=== PATIENT | male | born 1970 | race Caucasian/White ===

== ENCOUNTER → 2017-02-24 | Outpatient (CLI) | payer OTHER ==
--- NOTE | 2017-02-24 09:47 | MR ---
EXAMINATION TYPE: MR shoulder LT wo con DATE OF EXAM: 02/24/2017 7:53 AM COMPARISON: NONE HISTORY: lt shoulder pain disorder rotator cuff lt TECHNIQUE: Multiplanar multispin echo imaging of the right shoulder was performed. FINDINGS: Rotator cuff : Full thickness tear involving the supraspinatus tendon just proximal to the critical z one with fluid filled gap of 1.5 cm. There is evidence of retraction. No evidence for muscular atroph y. There is superimposed chronic tendinopathy. Fluid is seen within the subacromial subdeltoid bursa. Remaining constituents of the rotator cuff are intact. Musculature: There is no muscular tear, contusion, or atrophy. Acromioclavicular joint : There are mild to moderate degenerative changes of the acromioclavicular chloe int. Small subacromial spur resulting in impingement. Osseous structures : There are no fractures or regions of abnormal bone marrow signal intensity. Long biceps tendon : The biceps tendon is normally situated within the bicipital groove. No complete or partial biceps tendon tear is present. Glenohumeral Joint fluid : Small joint effusion noted. Cartilage and Bone : No focal hyaline cartilage defects are noted. No Hill-Sachs, reverse Hill-Sachs, or bony Bankart lesions are seen. Labrum : Diminutive anterior superior glenoid labrum may reflect tear. OTHER FINDINGS : none IMPRESSION: 1. Full-thickness retracted tear supraspinatus tendon as discussed. 2. I cannot exclude the anterior superior glenoid labral tear.
== END | disposition home or self-care (01) ==
LOC: RADMRIMAIN 07:13
PROVIDERS: ATTEND Family Medicine
DX: M75.122 Complete rotator cuff tear or rupture of left shoulder, not specified as traumatic (principal); M67.912 Unspecified disorder of synovium and tendon, left shoulder

== ENCOUNTER 2017-03-24 10:23 | Day surgery (SDC) | payer OTHER ==
[2017-03-22 10:27] VITALS: BMI 35.4
[~2017-03-24 10:23] MED LIST: ACETAMINOPHEN TAB 500 MG TAB PO ONE; DEXAMETHASONE SOD PHOSPHATE 10 MG/ML 1 ML VIAL IV ONE; HYDROmorphone 0.5 MG/0.5 ML SYRINGE IVP PRN; LACTATED RINGERS 1,000 ML IV SCH; MELOXICAM 7.5 MG TAB PO ONE; MIDAZOLAM 2 MG/2 ML VIAL IV PRN; ONDANSETRON 4 MG/2 ML VIAL IVP ONE; Pre Op ABX Message 1 EACH MISC MISCELLANE ONE
[2017-03-24] MEDS ORDERED: LIDOCAINE 1% 20 ML VIAL (10MG/ML) FOR IV START INTRADERMA ONE (11:18)
[2017-03-24] MEDS ORDERED: SCOPOLAMINE 1.5MG/72HR PATCH TRANSDERM ONE (11:40)
[2017-03-24] MEDS ORDERED: SUCCINYLCHOLINE CHLORIDE 100 MG/5 ML SYR IV ONE (12:27)
[2017-03-24] MEDS ORDERED: GLYCOPYRROLATE 0.2 MG/ML 2 ML VIAL ONE (12:27)
[2017-03-24] MEDS ORDERED: PROPOFOL 10 MG/ML 20 ML VIAL IV ONE (12:27)
[2017-03-24] MEDS ORDERED: ROCURONIUM BROMIDE 10 MG/ML 10 ML VIAL IV ONE (12:27)
[2017-03-24] MEDS ORDERED: LIDOCAINE 2%-EPI 1:100,000 20 ML VIAL ONE (12:27)
[2017-03-24] MEDS ORDERED: NEOSTIGMINE 1 MG/ML 10 ML VIAL ONE (12:27)
[2017-03-24] MEDS ORDERED: PHENYLEPHRINE-0.9% NACL SYG 1 MG/10 ML SYRINGE ONE (12:27)
[2017-03-24] MEDS ORDERED: LIDOCAINE 1% INJ 10MG/ML (20 ML MDV) ONE (12:27)
[2017-03-24] MEDS ORDERED: ROPIVACAINE 5 MG/ML 30 ML VIAL ONE (12:27)
[2017-03-24] MEDS ORDERED: MIDAZOLAM 2 MG/2 ML VIAL ONE (12:27)
[2017-03-24] MEDS ORDERED: SODIUM CHLORIDE 0.9% 50 ML with ceFAZolin 1,000 MG IV ONE ×2 (12:49)
[2017-03-24] MEDS ORDERED: LACTATED RINGERS 1,000 ML IV ONE (14:12)
[2017-03-24 15:09] VITALS: TEMP 97
[2017-03-24 16:24] VITALS: RESP 16
[2017-03-24 16:51] VITALS: BP 137/86; PULSE 86
--- NOTE | 2017-03-26 17:09 | P.ONQ ---
Anesthesiology Proc Note - PNB - Peripheral Nerve Block Performed Interscalene Single Time Out Performed: Yes Procedure Start Time: 12:11 Procedure Stop Time: 12:16 Indication: Acute Post-Operative Pain, Requested by physician Sedation Type: Sedate with meaningful contact maintained Preparation: Sterile Prep Position: Supine Needle Size: 50mm (2") Needle Gauge: 21 Technique: Ultrasound Injectate: 2.0% Lidocaine (see comment for volume) (ropi .5% 20cc plus lido 2percent with epi-14 mL) Blood Aspirated: No Pain Paresthesia on Injection Noted: No Resistance on Injection: Normal Events: Uneventful and Well Tolerated
--- NOTE | 2017-04-24 10:17 | P.OP ---
Date of Procedure: 03/24/17 Procedure(s) Performed: left shoulder arthroscopy RCR, SAD, PDCE, SLTD, LHB debridement (Mini open?) carline ebl 25 anchors--self drilling swivelocks from [employer] PREOPERATIVE DIAGNOSES: 1. Left shoulder rotator cuff tear. 2. Chronic impingement syndrome. 3. Acromioclavicular osteoarthritis. 4. Superior labral degenerative tear. POSTOPERATIVE DIAGNOSES: 1. Left shoulder rotator cuff tear (supraspinatus, [] cm). 2. Chronic impingement syndrome. 3. Acromioclavicular osteoarthritis. 4. Labral degenerative tear. 5. Severe biceps tendon degeneration 6. Moderate adhesions glenohumeral joint and subacromial space PROCEDURES PERFORMED: 1. Left shoulder arthroscopy with rotator cuff repair 2. Arthroscopic partial distal clavicle excision 3. Arthroscopic lysis of adhesions with subacromial bursectomy 4. Arthroscopic debridement superior labral tear and biceps tenotomy 5. Arthroscopic subacromial decompression ANESTHESIA: General. ESTIMATED BLOOD LOSS: Less than 25 mL TOURNIQUET: None CLINICAL ASST: Hazel Harris (assistance with: Positioning, retraction, camera operation, repair, closure, dressing) COMPLICATIONS: None. DISPOSITION: To postanesthesia care unit INDICATIONS: Damion is a 46 year old male with a history of rotator cuff difficulties. He has difficulties with overhead activities as well as significant pain at night consistent with a rotator cuff tear and he also has symptoms referrable to his biceps tendon.. MRI was suspicious for a tear, and the patient wishes to have it repaired. I have examined the patient in the office and proposed rotator cuff repair via an arthroscopic or mini-open approach, as well as other procedures to optimize the shoulder and outcome, such as decompression of spurs and debridement of loose or degenerated tissue. I have explained the risks of this surgery as being inclusive of, but not limited to: bleeding, infection, scarring, discomfort, blood vessel and/or nerve damage, need for further surgery, stiffness, persistence or worsening of problems, , and other risks. The consent form has been completed and signed. PROCEDURE: Appropriate consent was obtained from the patient. The patient was taken to the operating room and placed in the supine position. General anesthesia was initiated and after confirmation of adequate anesthesia, the patients right shoulder was examined. Initial range of motion showed flexion to 170 abduction to 170, external rotation to 70 and internal rotation to 70. The shoulder was stable. Next, the patient was rotated into the lateral decubitus position and stabilized to the table with a lockwood bag and padded straps. Care was taken to make sure that all pressure points were adequately padded. Bear-hugger was used along with bilateral leg sequential compression devices. Prepping and draping was completed in the usual aseptic fashion using ChloraPrep. The patient received intravenous antibiotics prior to incision. The shoulder was suspended from traction with 15 lbs. of weight in a position of 45 degrees abduction. Landmarks were outlined with a skin marking pen. A spinal needle was inserted into the glenohumeral joint and fluid was administered to distend the joint. Some pressure was noted after 100 mL was administered. A posterior portal was created using an 11 blade and the arthroscopic canula, over a dull trocar, was carefully inserted into the joint. Arthroscopy then commenced. An anterior portal was inserted in the rotator interval area using inside-out technique. Biceps tendon showed severe deterioration. Biceps tenotomy was performed using a shaver. The tendon stump was then allowed to retract into the bicipital groove. Infraspinatus and teres minor attachments were normal. Subscapularis tendon showed a partial tear along the superior rolled border which was addressed with debridement. Hyaline cartilage of the glenoid and humeral head showed mild degenerative changes typical for age. Supraspinatus attachment after superficial debridement showed a 1.3 cm tear which was full thickness. No loose bodies were noted in the joint. Superior labrum showed moderate degenerative tearing but was well-attached. Negative peel back sign. There was also evidence of minor degenerative labral tearing in the inferior area. Loose fibers of labrum in this area were debrided away back to stable labrum. Synovitis with adhesions was noted superior to the superior labrum and within the rotator interval. This was debrided and removed where the capsule appeared inflamed, using an arthroscopic shaver. Attention was then directed to the subacromial space. The camera and instruments were redirected into the subacromial space and bursoscopy was performed. The patients bursa was inflamed and thickened, indicating chronic bursitis. A lateral portal was created using outside-in technique. The supraspinatus tendon was examined particularly closely. There was an approximately 1.3 cm full thickness crescent-shaped tear. The loose fibers of the tear were debrided back to stable tissue and the defect in the tendon was repaired arthroscopically after careful preparation of the supraspinatus footprint with germaine and rasp to create a good bleeding surface of bone, see below. The subacromial bursa contained moderate degenerative appearing adhesions within the superior space, but also the lateral anterior and posterior spaces as well. This degenerative material which consisted of thickened bursal material, was resected using a shaver. Meticulous hemostasis was maintained using the ArthroCare device. The undersurface of the acromion had frictional changes consistent with impingement syndrome. The underside of the acromion anteriorly was cleared of soft tissue using an arthroscopic radiofrequency ablator. The frictional changes of the rotator cuff matched exactly the location of the rotator cuff tear in the critical zone. A formal subacromial decompression was performed using a germaine. Approximately 5 mm of material was removed from the anterior-inferior corner of the acromion. This resection was beveled upwards laterally, and carried to the AC joint. The AC joint appeared arthritic with inferior spurring. This spurring was removed with a germaine, co- planing the resection with the acromial resection. The rotator cuff tear was then repaired as follows. Supraspinatus footprint was debrided back to bleeding bone using a germaine. Full decortication was not performed. One simple margin convergence type suture of #2 FiberWire was deployed into the medial portion of the rotator cuff tear. A reverse mattress suture using Fiber Tape from [employer] was deployed into the torn supraspinatus edge. A 4.75 mm Swivelock anchor was then deployed at the greater tuberosity and the suture tension was adjusted so that there was complete reduction and coverage of the footprint. The #2 suture contained within the anchor was also used for additional fixation of the cuff tissue, and applying a horizontal mattress type suture and tying the suture with alternating half hitches arthroscopically. It was noted that there was complete closure of the cuff defect. The repair was stable. Subsequently, 4-0 Monocryl was used to close the portal holes. Steri-strips were applied as well as sterile dressing. The shoulder was then placed into a sling and the patient was transferred to recovery room in stable condition. Sponge and needle counts were correct.
== END 2017-03-24 17:03 | disposition home or self-care (01) ==
LOC: OR 10:23
PROVIDERS: ATTEND Orthopaedic Surgery
DX: S46.012A Strain of muscle(s) and tendon(s) of the rotator cuff of left shoulder, initial encounter (principal); M75.42 Impingement syndrome of left shoulder; M19.012 Primary osteoarthritis, left shoulder; M75.02 Adhesive capsulitis of left shoulder; M75.52 Bursitis of left shoulder; S43.492A Other sprain of left shoulder joint, initial encounter; M54.12 Radiculopathy, cervical region; W11.XXXA Fall on and from ladder, initial encounter; Z79.1 Long term (current) use of non-steroidal anti-inflammatories (NSAID)
CPT/HCPCS: 29826; 29827; 29824; 84132; C1713 ×2; C1894; J2250; J1100; J2710; J2405; J2001; J0690; J2795; J2370; J0330; J2704

== ENCOUNTER 2019-04-08 05:42 | Day surgery (SDC) | payer OTHER ==
[2019-04-04 15:58] VITALS: BMI 30.9
--- NOTE | 2019-04-05 15:40 | P.HPIHPCON ---
History of Present Illness H&P Date: 04/05/19 Chief Complaint: left ureteral stone Mr. Fontaine is a 48-year-old male with history of a 4 mm left UPJ stone. He also has history of micro hematuria. Given his microscopic hematuria and ureteral stone, decision was made to the OR for cystoscopy left ureteroscopy and left u reteral stent placement. We discussed with him the risks including bleeding infection and injury to the ureter. I also discussed risk of anesthesia. He understood all the risks and agree to proceed with surgery Consent for Procedure: I have explained the operation/procedure to the patient, including the risks, benefits, side effects, alternative therapies (including not receiving the proposed treatment or service), the likelihood of the patient achieving his/her goals, and potential recuperation problems for the procedure/sedation/analgesia, as well as any blood products, if indicated. I also explained to the patient the risks, benefits and side effects of the alternatives, as well as the risks related to not receiving the proposed procedure, care, treatment, or services. - Constitutional Constitutional: Denies chills, Denies fever - Cardiovascular Cardiovascular: Denies leg edema - Respiratory Respiratory: Denies cough, Denies dyspnea - Gastrointestinal Gastrointestinal: Denies abdominal pain, Denies nausea, Denies vomiting Past Medical History Additional Past Medical History / Comment(s): kidney stones,hx lt rotator cuff tear History of Any Multi-Drug Resistant Organisms: None Reported Past Surgical History: Orthopedic Surgery Additional Past Surgical History / Comment(s): left rot cuff repair Past Anesthesia/Blood Transfusion Reactions: Motion Sickness Additional Past Anesthesia/Blood Transfusion Reaction / Comment(s): no hx blood transfusion Smoking Status: Never smoker - Past Family History Mother Family Medical History: No Reported History Medications and Allergies Home Medications Medication Instructions Recorded Confirmed Type No Known Home Medications 04/04/19 04/04/19 History Allergies Allergy/AdvReac Type Severity Reaction Status Date / Time No Known Allergies Allergy Verified 04/04/19 15:52 Assessment and Plan Assessment: 48 yo male with hx of 4 mm left UPJ stone Plan: Cystoscopy, Left Ureteroscopy, Holmium laser lithotripsy, stone basketting and s tent placement
[2019-04-08] MEDS ORDERED: METOCLOPRAMIDE 5 MG/ML 2 ML VIAL IVP PRN (06:00)
[2019-04-08] MEDS ORDERED: LIDOCAINE 1% 20 ML VIAL (10MG/ML) FOR IV START INTRADERMA PRN (06:00)
[2019-04-08] MEDS ORDERED: ONDANSETRON 4 MG/2 ML VIAL IVP ONE (06:00)
[2019-04-08] MEDS ORDERED: HYDROmorphone 0.5 MG/0.5 ML SYRINGE IVP PRN (06:00)
[2019-04-08] MEDS ORDERED: LACTATED RINGERS 1,000 ML IV SCH (06:00)
[2019-04-08] MEDS ORDERED: DEXAMETHASONE SOD PHOSPHATE 10 MG/ML 1 ML VIAL IV ONE (06:00)
--- NOTE | 2019-04-08 07:12 | XR ---
EXAMINATION TYPE: XR KUB DATE OF EXAM: 04/08/2019 COMPARISON: NONE HISTORY: Nephrolithiasis. Preoperative exam. TECHNIQUE: Single supine AP portable view the abdomen FINDINGS: Solitary left 5 mm renal calculus is seen. Bowel overlies the right renal shadow. No calcul i are definitively seen along the courses of the ureters or in the urinary bladder region. Osseous st ructures appear intact. No dilated large or small bowel. IMPRESSION: Left-sided millimeter renal calculus. No calculi are definitively seen along the courses of the ureters or in the expected location of the urinary bladder.
[2019-04-08] MEDS ORDERED: MIDAZOLAM 2 MG/2 ML VIAL ONE (07:23)
[2019-04-08] MEDS ORDERED: LIDOCAINE 1% INJ 10MG/ML (20 ML MDV) ONE (07:23)
[2019-04-08] MEDS ORDERED: PROPOFOL 10 MG/ML 20 ML VIAL IV ONE (07:23)
[2019-04-08] MEDS ORDERED: fentaNYL (PF) 50 MCG/ML 2 ML AMP ONE (07:23)
[2019-04-08] MEDS ORDERED: IOHEXOL 350 MG/ML 50 ML in EMPTY BAG 1 BAG IRRIGATION ONE (07:49)
[2019-04-08 08:40] VITALS: TEMP 97.9
--- NOTE | 2019-04-08 08:52 | P.OP ---
Date of Procedure: 04/08/19 Preoperative Diagnosis: Left ureteral stone Postoperative Diagnosis: Same Procedure(s) Performed: Cystoscopy, left retrograde pyelogram, ureteroscopy, holmium laser lithotripsy, stone basketing and stent placement Implants: 4.8-Cymro by 26 cm stent Anesthesia: JADA Surgeon: Bennie Berry Estimated Blood Loss (ml): 5 Pathology: other (Utreteral stone for analysis) Condition: stable Indications for Procedure: Mr. Fontaine is a 48-year-old male with history of a 4 mm left UPJ stone. He also has history of micro hematuria. Given his microscopic hematuria and ureteral stone, decision was made to the OR for cystoscopy left ureteroscopy and left ureteral stent placement. We discussed with him the risks including bleeding infection and injury to the ureter. I also discussed risk of anesthesia. He understood all the risks and agree to proceed with surgery Operative Findings: left proximal ureteral stone Description of Procedure: The patient was brought to the operating room general anesthesia was induced. He was prepped and draped in sterile fashion and placed in dorsal lithotomy position. Cystoscope fitted with a 22 sheath was inserted per urethra cystoscopy was performed which showed no abnormality within the bladder. Attention was then carried to the left ureteral orifice. The left ureteral orifice was intubated with a 6-Cymro open ended catheter retrograde pyelogram was performed which showed a filling defect at the proximal ureter and mild hydronephrosis proximal to that. 0.035 sensor wire was advanced through the catheter and into the renal pelvis the catheter was removed with the wire in place. Next a 12-14 access sheath was passed over the wire and advanced to the proximal ureter. Next a flexible ureteroscope was inserted through the access sheath and the stone was encountered in the proximal ureter. The stone was fragmented using the holmium laser and the fragments were removed using the ZeroTip basket. Of note the stone appeared to be impacted and there was edema at the site of the stone impaction. After the stone was removed the ureteroscope was advanced to the kidney and renoscopy was performed which showed no additional stones in the kidney or significant fragments. A pullback ureteroscopy was performed which showed no residual stone or a injury to the ureter but there was edema at the site of stone impaction. Next the cystoscope was reinserted and a 4.8 x 26 cm stent was passed over the wire the proximal curl was visualized under fluoroscopy and the distal curl was visualized using the cystoscope. The bladder was emptied at the end of the case. Stone was sent for analysis, the patient was awakened from anesthesia and taken to recovery room in stable condition
--- NOTE | 2019-04-08 08:53 | FL ---
Fluoroscopy HISTORY: Stent placement 0.33 minutes fluoroscopy time supplied to the referring clinician. 5 intraoperative C-arm images doc ument the procedure. See dictated report from urology.
[2019-04-08] MEDS ORDERED: HYDROmorphone 0.5 MG/0.5 ML SYRINGE IVP ONE (09:39)
[2019-04-08 10:13] VITALS: BP 153/89; PULSE 84; RESP 16
== END 2019-04-08 10:29 | disposition home or self-care (01) ==
LOC: OR 05:42
PROVIDERS: ATTEND Urology
DX: N13.2 Hydronephrosis with renal and ureteral calculous obstruction (principal); K08.89 Other specified disorders of teeth and supporting structures; Z98.890 Other specified postprocedural states; Z87.39 Personal history of other diseases of the musculoskeletal system and connective tissue; Z87.898 Personal history of other specified conditions
CPT/HCPCS: 82365; 74420; 74018; 52356; C2625; C1894; C1758; J2250; J1100; J0690; J2405; J2001; J3010; J2704; Q9967; J1170; 74430

== ENCOUNTER → 2022-06-02 | Outpatient (CLI) | payer OTHER ==
--- NOTE | 2022-06-02 10:42 | CT ---
EXAMINATION TYPE: CT abdomen pelvis w con CT DLP: 1371.60 mGycm, Automated exposure control for dose reduction was used. DATE OF EXAM: 06/02/2022 10:31 AM COMPARISON: Abdominal ultrasound 12/06/2013. CLINICAL INDICATION:Male, 51 years old with history of R19.00 abdominal mass K43.9 ventral hernia; TECHNIQUE: Standard CT of the abdomen and pelvis following the administration of 70 cc of Isovue 30 0 IV contrast material and oral contrast. Coronal and sagittal reformats were performed. FINDINGS: LOWER CHEST: Scarring and/or atelectasis in the right middle lobe. ABDOMEN LIVER: Diffusely hypoattenuating parenchyma. GALLBLADDER AND BILE DUCTS: Unremarkable. PANCREAS: Unremarkable. SPLEEN: Unremarkable. ADRENAL GLANDS: Unremarkable. KIDNEYS AND URETERS: No evidence of hydronephrosis or renal calculus. The kidneys enhance symmetrical ly without suspicious focal lesion. PELVIS BLADDER: Moderately distended. REPRODUCTIVE: Unremarkable. ABDOMEN & PELVIS STOMACH AND BOWEL: Stomach and duodenum are unremarkable. Enteric contrast reaches the sigmoid colon. No focal wall thickening or surrounding inflammatory changes. No significant diverticulosis. The sheri endix is within normal limits. No evidence of bowel obstruction. PERITONEUM: No evidence of pneumoperitoneum or free fluid. VASCULATURE: No evidence of aortic aneurysm. MUSCULOSKELETAL: No acute osseous abnormalities LYMPH NODES: No gross evidence for lymphadenopathy. SOFT TISSUE/ABDOMINAL WALL: No ventral wall abdominal hernia identified. Diastases recti measuring up to 4 cm. IMPRESSION: 1. No acute abdominal/pelvic process. 2. No ventral abdominal wall hernia. Diastases recti demonstrated. 3. Hepatic steatosis.
== END | disposition home or self-care (01) ==
LOC: RADCTMAIN 08:17
PROVIDERS: ATTEND Family Medicine
DX: K43.9 Ventral hernia without obstruction or gangrene (principal); R19.00 Intra-abdominal and pelvic swelling, mass and lump, unspecified site; K76.0 Fatty (change of) liver, not elsewhere classified
CPT/HCPCS: 74177; Q9967

== ENCOUNTER → 2024-09-20 | Outpatient (CLI) | payer OTHER ==
[2024-09-20 15:19] LABS: HCT 45.5 % (39.6-50.0); HGB 15.1 g/dL (13.0-17.0); MCH 29.4 pg (27.0-32.0); MCHC 33.2 g/dL (32.0-37.0); MCV 88.5 FL (80.0-97.0); NRBC Per 100 WBC 0 X 10*3/uL (0.00-0.01); Platelet Count 274 X 10*3/uL (140-440); RBC 5.14 X 10*6/uL (4.40-5.60); RDW 13.2 % (11.5-14.5); WBC 7.04 X 10*3/uL (4.50-10.00)
== END | disposition home or self-care (01) ==
LOC: LABPAT 08:25
PROVIDERS: ATTEND Surgery
DX: Z01.818 Encounter for other preprocedural examination (principal); K43.9 Ventral hernia without obstruction or gangrene
CPT/HCPCS: 85027; 86850; 86900; 86901; 93005